=== PATIENT | male | born 1940 | race Caucasian/White ===

== ENCOUNTER → 2018-08-11 | Day surgery (SDC) | payer MEDICARE, BC ==
[2018-08-09 12:21] LABS: BASOPHILS % 0.4 % (0.0-1.0); EOSINOPHILS # (AUTO) 0.1 (0.0-0.4); HEMATOCRIT 47.7 % (38.2-49.6); HEMOGLOBIN 15.8 g/dL (14.0-18.0); LYMPHOCYTES # (AUTO) 2.2 (1.0-3.2); LYMPHOCYTES % 24.3 % (18.0-39.1); MEAN CORPUSCULAR HEMOGLOBIN 27.7 pg (28-32); MEAN CORPUSCULAR HGB CONC 33.1 g/dL (31-35); MEAN CORPUSCULAR VOLUME 83.5 fL (81-99); MONOCYTES # (AUTO) 0.7 (0.2-0.8); MONOCYTES % 7.2 % (4.4-11.3); NEUTROPHILS % 66.8 % (38.7-80.0); PLATELET COUNT 187 x10e3/uL (140-360); RED BLOOD COUNT 5.71 x10e6/uL (4.3-5.7); RED CELL DISTRIBUTION WIDTH 14.7 % (11.7-14.4)
[~2018-08-11] MED LIST: ATORVASTATIN CA20 MG PO; CILOSTAZOL50 MG PO; CIPRO500 MG PO; ECOTRIN325 MG PO; FENTANYL CITRATE/PF 100MCG/2 ML INJ ONE; FISH OIL 1,0001 EAC2 PO; HYOSCYAMINE SULFATE 0.5 MG/ML INJ ONE; LIDOCAINE HCL 2% LOCAL INJ 5 ML SDV VIAL INJ ONE; LORTAB 7.5-5001 EACH PO; LOTENSIN40 MG PO; METOPROLOL SUCC25 MG PO; MIDAZOLAM HCL 2 MG/2 ML VIAL ONE; MULTI-VITAMIN1 EACH PO; NITROSTAT0.4 MG SL; NORVASC10 MG PO; PANTOPRAZOLE SO40 MG PO; PROPOFOL IV EMULSION 10 MG/ML 50 ML VIAL ONE; SUPER B; VIT B12 PO; VITAMIN C1000 M2 PO
[2018-08-11 19:00] VITALS: BP 138/85
--- NOTE | 2018-08-11 19:15 | Operative Report ---
DATE OF PROCEDURE: August 11, 2018 PROCEDURE PERFORMED: Colonoscopy and a polypectomy. INDICATIONS FOR COLONOSCOPY: Surveillance colonoscopy, personal history of colon polyps, left-sided abdominal pain. MEDICATION: Patient was done under MAC. Please see anesthesiologist's note. PROCEDURE: With the patient in left lateral decubitus position, a flexible fiberoptic Olympus colonoscope was inserted into the rectum with ease and advanced all the way to the cecum. It was then withdrawn slowly. Mucosa overlying the cecum, ascending colon, and transverse colon appeared to be within normal limits. Two polyps were hot biopsied from the descending colon. Diverticular disease was noted to involve the descending and the sigmoid colon. Six polyps were hot biopsied and 1 polyp was snared from the sigmoid colon. Three polyps were snared and 9 polyps were hot biopsied from the rectum. The scope was then retroflexed into the distal rectum and moderate-size internal hemorrhoids were noted, none of which was actively bleeding. The scope was then straightened out and was subsequently withdrawn. Patient tolerated the procedure well. IMPRESSION 1. Descending colon polyps x2, hot biopsied. 2. Diverticulosis. 3. Sigmoid colon polyps x7, one snared and 6 hot biopsied. 4. Rectal polyps x12, three snared and 9 hot biopsied. 5. Internal hemorrhoids, none actively bleeding. A total of 21 polyps were removed. PLAN: Follow up histology. Initiate high-fiber, low-fat diet. Initiate VSL #3 one p.o. b.i.d. Patient might benefit from a followup colonoscopy in 6 months to 1 year. He satisfies the criteria for hyper-polyposis syndrome. Job#: [id number] JAMES
== END | disposition home or self-care (01) ==
LOC: ENDO 12:55
PROVIDERS: ATTEND Internal Medicine Gastroenterology
DX: Z12.11 Encounter for screening for malignant neoplasm of colon (principal); D12.4 Benign neoplasm of descending colon; D12.8 Benign neoplasm of rectum; K57.30 Diverticulosis of large intestine without perforation or abscess without bleeding; K64.8 Other hemorrhoids; K25.9 Gastric ulcer, unspecified as acute or chronic, without hemorrhage or perforation; Q27.33 Arteriovenous malformation of digestive system vessel; R10.32 Left lower quadrant pain; K29.70 Gastritis, unspecified, without bleeding; I10 Essential (primary) hypertension; E78.5 Hyperlipidemia, unspecified; I25.10 Atherosclerotic heart disease of native coronary artery without angina pectoris; Z71.6 Tobacco abuse counseling; Z72.0 Tobacco use; Z91.02 Food additives allergy status; Z01.810 Encounter for preprocedural cardiovascular examination; Z01.812 Encounter for preprocedural laboratory examination; Z79.82 Long term (current) use of aspirin; Z95.5 Presence of coronary angioplasty implant and graft
CPT/HCPCS: 36415; 45384; 45385; 85025; 88305; 93005; J1980; J2001; J2250

== ENCOUNTER → 2019-02-23 | Outpatient (CLI) | payer MEDICARE, BC ==
[~2019-02-23] MED LIST changes: -FENTANYL CITRATE/PF 100MCG/2 ML INJ ONE; -HYOSCYAMINE SULFATE 0.5 MG/ML INJ ONE; +IOPAMIDOL 370 MG/ML 200 ML INFUS..BTL INJ ONE; -LIDOCAINE HCL 2% LOCAL INJ 5 ML SDV VIAL INJ ONE; -MIDAZOLAM HCL 2 MG/2 ML VIAL ONE; -PROPOFOL IV EMULSION 10 MG/ML 50 ML VIAL ONE; +SODIUM CHLORIDE 0.9% 50ML 50 ML ONE
[2019-02-23 12:54] LABS: BLOOD UREA NITROGEN 23 mg/dL (7-26); BUN/CREATININE RATIO 21 (6-25); CREATININE, SERUM 1.09 mg/dL (0.72-1.25); EST GLOMERULAR FILTRATION RATE > 60 ML/MIN (60-)
--- NOTE | 2019-02-23 13:54 | Diagnostic Imaging Report ---
EXAM: CT Abdomen and Pelvis WITH intravenous contrast INDICATION: Abdominal wall bulge, palpable abnormality COMPARISON: None. TECHNIQUE: Abdomen and pelvis were scanned utilizing a multidetector helical scanner from the lung base to the pubic symphysis after administration of IV contrast. Coronal and sagittal reformations were obtained. Routine protocol was performed. Scan was performed when during portal venous phase. IV CONTRAST: 100mL of Isovue 370 ORAL CONTRAST: Water COMPLICATIONS: None RADIATION DOSE: Total DLP: 570.3 mGy*cm Dose modulation, iterative reconstruction, and/or weight based adjustment of the mA/kV was utilized to reduce the radiation dose to as low as reasonably achievable. FINDINGS: LOWER THORAX: No focal consolidation at the lung bases. The heart is not enlarged. Atherosclerotic calcifications of the coronary arteries. HEPATOBILIARY: There are scattered simple cysts throughout the liver, the largest of which is in the right hepatic lobe measuring up to 5.8 cm in diameter. No focal solid liver lesions. No biliary ductal dilatation. The bladder appears unremarkable. SPLEEN: No splenomegaly. PANCREAS: No focal masses or ductal dilatation. ADRENALS: No adrenal nodules. KIDNEYS/URETERS: No hydronephrosis, renal calculi, or solid mass lesions. There are bilateral renal cysts, the largest of which measure up to 2.3 cm on the right and 1.1 cm on the left. PELVIC ORGANS/BLADDER: Prostatomegaly to 5.1 cm. Decompressed bladder. PERITONEUM / RETROPERITONEUM: No free air or fluid. LYMPH NODES: No lymphadenopathy. VESSELS: Extensive atherosclerotic calcifications of the nonaneurysmal abdominal aorta and major branches. GI TRACT: Extensive sigmoid and descending colonic diverticulosis with no CT evidence of diverticulitis. No abnormal bowel wall thickening. No bowel obstruction. BONES AND SOFT TISSUES: In the left lower abdomen. There is outpouching of the left anterior abdominal wall musculature with a bulge containing fat and small bowel. No focal hernia. Small right inguinal hernia containing fat. No acute osseous injury. There are bilateral L5 pars interarticularis defects with grade 1 anterolisthesis of L5-S1. No suspicious lytic or blastic lesions. IMPRESSION: Left lower anterior abdominal wall muscular weakness with outpouching containing fat and small bowel. No focal defect or hernia. Extensive sigmoid and descending colonic diverticulosis with no CT evidence of diverticulitis. Extensive atherosclerotic calcifications of the coronary arteries and nonaneurysmal aorta and major branches. Signed by: Madeline Garcia MD on 02/23/2019 1:50 PM
== END ==
LOC: CT 12:13
PROVIDERS: ATTEND Internal Medicine Gastroenterology
DX: R19.00 Intra-abdominal and pelvic swelling, mass and lump, unspecified site (principal)
CPT/HCPCS: 36415; 74177; 82565; 84520; Q9967